=== PATIENT | male | born 1965 | race African-American/Black ===

== ENCOUNTER 2019-05-29 02:29 | Emergency (ER) | payer MEDICAID, OTHER ==
[~2019-05-29] VITALS: Ht 172.7 cm; Wt 85.8 kg
[2019-05-29 02:34] VITALS: Ht 172.7 cm; Wt 85.8 kg
[2019-05-29] MEDS: KETOROLAC 30 MG INJ IM STA ×2 (03:49→03:51)
[2019-05-29] MEDS ORDERED: ACETAMINOPHEN 325 MG TAB PO ONE (04:00)
[2019-05-29] MEDS ORDERED: NAPR-985 PO (05:42)
[2019-05-29 06:35] VITALS: BP 142/79; PULSE 89; RESP 16
--- NOTE | 2019-05-31 19:20 | ERD ---
ER Documentation Chief Complaint Chief Complaint Rt arm pain ,pt fell while fixing his car. HPI This patient is a 53-year-old male with no significant past medical history presenting to the emergency department complaining of right elbow pain which began suddenly after a fall yesterday at 6 PM. The patient states he was working on his car when he accidentally slipped on the wet ground directly onto his right elbow. He reports intermittent, 8/10 severity, right elbow pain which is worse with movement. He took no medication for relief of symptoms. He denies any other symptoms or injuries at this time. He denies head injury or loss of consciousness. ROS All systems reviewed and are negative except as per history of present illness. Medications Home Meds Active Scripts Naproxen* (Naprosyn*) 500 Mg Tablet, 500 MG PO BID PRN for PAIN AND/OR INFLAMMATION, #30 TAB Prov:BLANQUITA LYON PA-C 05/29/19 Allergies Allergies: Coded Allergies: No Known Allergy (Unverified , 05/29/19) PMhx/Soc Medical and Surgical Hx: pt denies Medical Hx History of Surgery: Yes (L Knee Surgery) Anesthesia Reaction: No Hx Neurological Disorder: No Hx Respiratory Disorders: No Hx Cardiac Disorders: No Hx Psychiatric Problems: No Hx Miscellaneous Medical Probl: No Hx Alcohol Use: No Hx Substance Use: No Hx Tobacco Use: Yes (Cigarettes) Smoking Status: Current every day smoker Physical Exam Vitals Vital Signs Date Temp Pulse Resp B/P (MAP) Pulse Ox O2 O2 Flow FiO2 Time Delivery Rate 05/29/19 98.2 89 16 142/79 98 Room Air 06:35 (100) 05/29/19 98.5 107 16 167/90 97 02:34 (115) Physical Exam Const: No acute distress Head: Atraumatic Eyes: Normal Conjunctiva ENT: Normal External Ears, Nose and Mouth. Neck: Full range of motion. No meningismus. Resp: Clear to auscultation bilaterally Cardio: Regular rate and rhythm, no murmurs Abd: Soft, non tender, non distended. Normal bowel sounds Skin: No petechiae or rashes Back: No midline or flank tenderness Ext: No cyanosis, or edema Neur: Awake and alert Psych: Normal Mood and Affect Results 24 hrs Current Medications Medications Dose Sig/Deidra Start Time Status Last (Trade) Ordered Route PRN Stop Time Admin Dose Reason Admin Ketorolac 30 mg ONCE STAT 05/29/19 DC Tromethamine IM 03:40 (Toradol) 05/29/19 03:41 650 mg ONCE ONCE 05/29/19 DC 05/29/19 Acetaminophen PO 04:00 03:56 (Tylenol 05/29/19 04:01 Tab) [address] [address] Radiology Main Line: [phone] DIAGNOSTIC IMAGING REPORT Patient: MELISSA JIN : 1965 Age: 53 Sex: M MR #: [id number] DOS: 05/29/19 0000 Ordering MD: BLANQUITA LYON PA-C Location: [facility] Room/Bed: PROCEDURE: Right elbow series CLINICAL INDICATION: Trauma and pain TECHNIQUE: AP lateral and oblique images were obtained of the right elbow COMPARISON: None FINDINGS: Nondisplaced intra-articular fracture of the right radial head. No other fractures or dislocations per no focal bony blastic or lytic lesions. Small right elbow joint effusion. Soft tissues otherwise unremarkable. IMPRESSION: Nondisplaced intra-articular fracture of the right radial head with small right elbow joint effusion. RPTAT:AAJJ Physician Susan Date Time Electronically viewed and signed by Physician Susan on 05/29/2019 05:06 BM/ CC: BLANQUITA LYON PA-C [id number] [address] [address] Radiology Main Line: [phone] DIAGNOSTIC IMAGING REPORT Patient: MELISSA JIN : 1965 Age: 53 Sex: M MR #: [id number] DOS: 05/29/19 0000 Ordering MD: BLANQUITA LYON PA-C Location: [facility] Room/Bed: PROCEDURE: US right upper extremity Venous. CLINICAL INDICATION: Right upper extremity pain swelling and redness TECHNIQUE: Multiple sonographic images of the right upper extremity venous system was obtained utilizing grayscale, color-flow, compressive sonography and doppler imaging with augmentation. COMPARISON: None. FINDINGS: Note that the patient had limited mobility of his elbow. The right ulnar and basilic veins were not visualized. Otherwise there is normal compressibility and flow within the right internal jugular vein, subclavian vein, axillary vein, brachial, , cephalic radial veins. IMPRESSION: 1. Somewhat limited evaluation due to the patient's inability to move his elbow and the right ulnar basilic veins were not visualized. 2. Otherwise no sonographic evidence for venous thrombosis of the right upper extremity. RPTAT:AAJJ Physician Susan Date Time Electronically viewed and signed by Physician Susan on 05/29/2019 06:00 BM/ CC: BLANQUITA LYON PA-C [id number] Procedures/MDM This patient is a 53-year-old male presenting to the emergency department complaining of right elbow pain after a fall yesterday. Patient denied any head injury or loss of consciousness. X-ray showed fracture of the right elbow. Venous Doppler of the right upper extremity showed no evidence for DVT. Patient required splint for immobilization of fracture.Splint Assessment: Neurovascularly intact post splint placement with good fit. Patient's extremity symptoms have stabilized while they have been evaluated in the department and are appropriate for outpatient follow up. No evidence of compartment syndrome, neurologic injury, vascular injury, open joint, open fracture, tendon laceration, or foreign body. Patient advised to have 24 to 48-hour follow-up with orthopedic physician. Medical decision making shared with the patient and he understands and agrees with the plan. Patient's blood pressure was elevated (>120/80) but appears stable without evidence of hypertension emergency or urgency. The patient is to follow-up and pursue outpatient monitoring and therapy with their primary care physician within 1 week and return immediately if they have any new, worsening, or concerning symptoms. Departure Diagnosis: Primary Impression: Elbow fracture, right Encounter type: initial encounter Fracture type: closed Qualified Codes: S42.401A - Unspecified fracture of lower end of right humerus, initial encounter for closed fracture Condition: Fair Patient Instructions: Elbow Fracture Referrals: [facility] YOU HAVE RECEIVED A MEDICAL SCREENING EXAM AND THE RESULTS INDICATE THAT YOU DO NOT HAVE A CONDITION THAT REQUIRES URGENT TREATMENT IN THE EMERGENCY DEPARTMENT. FURTHER EVALUATION AND TREATMENT OF YOUR CONDITION CAN WAIT UNTIL YOU ARE SEEN IN YOUR DOCTORS OFFICE WITHIN THE NEXT 1-2 DAYS. IT IS YOUR RESPONSIBILITY TO MAKE AN APPOINTMENT FOR FOLOW-UP CARE. IF YOU HAVE A PRIMARY DOCTOR --you should call your primary doctor and schedule an appointment IF YOU DO NOT HAVE A PRIMARY DOCTOR YOU CAN CALL OUR PHYSICIAN REFERRAL HOTLINE AT IF YOU CAN NOT AFFORD TO SEE A PHYSICIAN YOU CAN CHOSE FROM THE FOLLOWING [facility] [address] [facility] [address] [facility] [address] [facility] [address] [facility] [address] [facility] [facility] [address] [facility] [facility] Urgent Care 7 a.m.- 11 p.m. Every Day of the Week NO APPOINTMENT OR AUTHORIZATION NEEDED [facility] Hours: Mon-Fri 9:00 AM - 5:00 PM Additional Instructions: SPECIALIST: YOU HAVE A MEDICAL CONDITION WHICH REQUIRES YOU TO SEE A SPECIALIST WITHIN THE NEXT 1-2 DAYS. PLEASE FOLLOW UP WITH YOUR PRIMARY PHYSICIAN FOR REFFERAL.IF YOU DO NOT HAVE A PRIMARY CARE PHYSICIAN AND/OR YOU CAN NOT AFFORD TO SEE A PHYSICIAN THE FOLLOWING RESOURCES HAVE BEEN SUPPLIED TO YOU. IT IS YOUR RESPONSIBILITY TO BE SEEN BY THE SPECIALIST: ORTHOPEDICS BLANQUITA LYON PA-C May 31, 2019 19:20
== END 2019-05-29 06:35 | disposition home or self-care (01) ==
LOC: FTE 02:29
DX: S52.125A Nondisplaced fracture of head of left radius, initial encounter for closed fracture (principal); F17.210 Nicotine dependence, cigarettes, uncomplicated; W01.0XXA Fall on same level from slipping, tripping and stumbling without subsequent striking against object, initial encounter; Y92.810 Car as the place of occurrence of the external cause
CPT/HCPCS: 29105; 73080; 93971; J1885; Z7502; Z7610